=== PATIENT | female | born 1995 | race Caucasian/White ===

== ENCOUNTER 2016-07-28 20:11 | Inpatient (IN) | payer SELFPAY ==
[~2016-07-28] VITALS: Ht 154.9 cm; Wt 83.4 kg
[2016-07-28] MEDS ORDERED: ONDANSETRON ODT 4 MG PO ONE (20:30)
[2016-07-28] MEDS ORDERED: SODIUM CHLORIDE 0.9% 1,000ML IVBOLUS ONE (20:30)
[2016-07-28] MEDS ORDERED: ACETYLCYSTEINE IV ONE ×4 (20:30→22:00)
[2016-07-28] MEDS ORDERED: DEXTROSE 5% IV ONE ×4 (20:30→22:00)
[2016-07-28] MEDS ORDERED: ONDANSETRON ODT 4 MG ONE (20:35)
[2016-07-28 21:35] LABS: DAU SCREEN DISCLAIMER
[2016-07-28] MEDS ORDERED: METOCLOPRAMIDE 5 MG/ML, 2ML ONE (21:46)
[2016-07-28] MEDS ORDERED: ONDANSETRON 2MG/ML, 2ML ONE (21:46)
[2016-07-28 21:49] LABS: HCG UR OBC PASS
[2016-07-28] MEDS ORDERED: METOCLOPRAMIDE 5 MG/ML, 2ML IVPush ONE (22:00)
[2016-07-28] MEDS ORDERED: ONDANSETRON 2MG/ML, 2ML IVPush ONE (22:00)
[2016-07-28 22:18] LABS: ASPARTATE AMINO TRANSFERASE 17 U/L (15-37); BLOOD UREA NITROGEN 12 mg/dL (7-18)
[2016-07-28 22:21] LABS: ACETAMINOPHEN 34 mcg/mL (10-30)
[2016-07-28] MEDS ORDERED: SODIUM CHLORIDE 0.9% 1,000 ML IV SCH (22:51)
[2016-07-28] MEDS ORDERED: ONDANSETRON 2MG/ML, 2ML IVPush PRN (23:00)
[2016-07-28] MEDS ORDERED: PROMETHAZINE 25 MG/ML, 1ML IM PRN (23:00)
[2016-07-29] MEDS ORDERED: MAALOX/HYOSCYAMINE/LIDOCAINE 45 ML BOTTLE PO STA (00:01)
[2016-07-29] MEDS: FAMOTIDINE 20 MG/2 ML IVPush SCH ×3 (00:26→22:55)
[2016-07-29 00:44] VITALS: BP 128/72
[2016-07-29] MEDS: ENOXAPARIN 40 MG/0.4 ML SQ SCH ×2 (01:09→23:26)
[2016-07-29] MEDS ORDERED: DEXTROSE 5% IV ONE (02:00)
[2016-07-29] MEDS ORDERED: ACETYLCYSTEINE IV ONE (02:00)
[2016-07-29 02:54] LABS: ASPARTATE AMINO TRANSFERASE 14 U/L (15-37); BLOOD UREA NITROGEN 9 mg/dL (7-18)
[2016-07-29 04:00] VITALS: BP 112/51
[2016-07-29 05:00] LABS: BLOOD UREA NITROGEN 8 mg/dL (7-18)
[2016-07-29 05:05] LABS: ASPARTATE AMINO TRANSFERASE 13 U/L (15-37)
[2016-07-29 10:44] LABS: BLOOD UREA NITROGEN 5 mg/dL (7-18)
[2016-07-29 10:47] LABS: ASPARTATE AMINO TRANSFERASE 8 U/L (15-37)
[2016-07-29 13:30] LABS: ASPARTATE AMINO TRANSFERASE 7 U/L (15-37); BLOOD UREA NITROGEN 4 mg/dL (7-18)
[2016-07-29] MEDS: POTASSIUM CHLORIDE 20 MEQ in SODIUM CHLORIDE 0.9% 1,000 ML IV SCH ×2 (15:42→22:09)
[2016-07-29] MEDS: BACITRACIN OINT 500U/GM, 15 GM TP PRN (17:16)
[2016-07-29 22:37] LABS: ASPARTATE AMINO TRANSFERASE 12 U/L (15-37); BLOOD UREA NITROGEN 8 mg/dL (7-18)
[2016-07-30] MEDS: BACITRACIN OINT 500U/GM, 15 GM TP PRN ×3 (00:36→20:09)
[2016-07-30] MEDS: POTASSIUM CHLORIDE 20 MEQ in SODIUM CHLORIDE 0.9% 1,000 ML IV SCH (01:02)
[2016-07-30 03:27] VITALS: BP 119/80
[2016-07-30 05:59] LABS: BLOOD UREA NITROGEN 7 mg/dL (7-18)
[2016-07-30 06:04] LABS: ACETAMINOPHEN < 2 mcg/mL (10-30); ASPARTATE AMINO TRANSFERASE 12 U/L (15-37)
[2016-07-30 07:01] VITALS: BP 113/71
[2016-07-30] MEDS: FAMOTIDINE 20 MG/2 ML IVPush SCH ×2 (09:08→20:09)
[2016-07-30 12:52] VITALS: BP 113/76
[2016-07-30 20:35] VITALS: BP 133/83
[2016-07-30] MEDS ORDERED: ENOXAPARIN 40 MG/0.4 ML SQ SCH (23:00)
[2016-07-31 00:32] VITALS: BP 115/77
[2016-07-31 05:39] LABS: ASPARTATE AMINO TRANSFERASE 18 U/L (15-37); BLOOD UREA NITROGEN 15 mg/dL (7-18)
[2016-07-31 07:17] VITALS: BP 108/73
== END 2016-07-31 16:00 | disposition home or self-care (01) | DRG 917 ==
LOC: ED 20:55 → SUATTDRO 22:36 → EDIP 22:40 → CCU 23:29 → 4WST 07-29 23:50 → DCLOUNGE 07-31 15:51
DX: T39.1X2A Poisoning by 4-Aminophenol derivatives, intentional self-harm, initial encounter (principal); G92 Toxic encephalopathy; E87.2 Acidosis; R65.10 Systemic inflammatory response syndrome (SIRS) of non-infectious origin without acute organ dysfunction; F32.9 Major depressive disorder, single episode, unspecified; Z72.0 Tobacco use; F12.90 Cannabis use, unspecified, uncomplicated; T14.91 Suicide attempt; Y92.89 Other specified places as the place of occurrence of the external cause; R00.1 Bradycardia, unspecified
CPT/HCPCS: 36415; 80053; 80307; 80329; 81003; 81025; 82140; 83735; 84100; 85025; 85610; 87081; 93005; 96365; 96366; 96375; J0132; J1650; J2405; J3480; J7060; J7070; Q0162; G0480; J2765; J7030; S0028